=== PATIENT | male | born 1985 | race Caucasian/White ===

== ENCOUNTER 2019-06-27 05:36 | Outpatient (CLI) | payer OTHER ==
[~2019-06-27] VITALS: Ht 175 cm; Wt 95.4 kg
== END 2019-06-27 11:59 ==
LOC: PREOP 05:36
PROVIDERS: ATTEND Surgery
DX: Z01.818 Encounter for other preprocedural examination (principal)

== ENCOUNTER 2019-07-05 07:37 | Day surgery (SDC) | payer OTHER ==
--- NOTE | 2019-05-29 11:29 | HISTORY AND PHYSICAL ---
DATE OF SERVICE: PROCEDURE DATE: 07/05/2019. ATTENDING PHYSICIAN: DRE. HISTORY OF PRESENT ILLNESS: The patient is a 34-year-old male, who was referred over to us for pain as well as a bulge in the umbilical region. The patient reports that this has been there for approximately the last 8 years; however, more recently this has become larger in size and started to become painful. He did have a CT several years ago when he was in [place] and at the where it did confirm the umbilical hernia; however, he reports that it was not bothering him as much as it is now. He denies any diarrhea or constipation as well as no fever or chills. PAST MEDICAL HISTORY: None. PAST SURGICAL HISTORY: Right wrist ORIF in 2007, wisdom teeth removed. ALLERGIES: PERCOCET. MEDICATIONS: None. SOCIAL HISTORY: Negative for smoke, rare for alcohol. FAMILY HISTORY: Paternal grandmother, breast cancer, diabetes, myocardial infarction, hypertension. VITAL SIGNS: Blood pressure 110/50. Current weight is 216.2, 5 feet 9 inches. REVIEW OF SYSTEMS: Well-nourished male in no acute distress. He is not experiencing any shortness of breath or difficulty breathing. No chest pain, palpitations or diaphoresis. No nausea or vomiting. He does report episodes of discomfort as well as pain at times in the umbilical region. No diarrhea or constipation. No red blood per rectum. No dark tarry stools. No fever or chills. No recent inadvertent weight loss. All other review of systems negative. PHYSICAL EXAMINATION: CHEST: Clear. Good breath sounds bilaterally. HEART: Regular, no murmurs. EXTREMITIES: No lower extremity edema. Negative Homans sign. HEENT: Scleral icterus. NECK: No cervical lymphadenopathy. ABDOMEN: Soft, nondistended. With the patient performing Valsalva maneuver, there is a bulge from the umbilical region, which was identified, which is reducible; however, the painful upon palpation. This is a reducible and is consistent with an umbilical hernia. SKIN: Warm, dry and pink. NEUROLOGIC: Awake, alert and oriented x3. ASSESSMENT AND PLAN: A 34-year-old male with a symptomatic reducible umbilical hernia. At this time, we will recommend proceeding with an umbilical hernia repair with mesh. The risks and benefits of the procedure as well as the procedure and home care instructions were explained to the patient. The patient verbalized understanding of instructions and agrees to proceed as planned. At this time, we will proceed with scheduling him for an umbilical hernia repair with mesh. Job ID: [id number] DocumentID: [id number] Dictated Date: 05/29/2019 09:32:18 Washroom Attendant Date: 05/29/2019 11:28:58 Dictated By: YOLANDA HOUSTON APRN
[2019-07-05] VITALS (11 sets, daily range): BP systolic 99–131; BP diastolic 61–88
[~2019-07-05] VITALS: Ht 175 cm; Wt 95.4 kg
[2019-07-05] MEDS ORDERED: ONDANSETRON 4 MG/2 ML (SDV) Z0FRAN ONE (08:13)
[2019-07-05] MEDS ORDERED: MIDAZOLAM 2 MG/2 ML (VERSED) VIAL ONE (08:13)
[2019-07-05] MEDS ORDERED: fentaNYL INJECTION 100 MCG/2 ML AMP ONE (08:13)
[2019-07-05] MEDS ORDERED: proPOfol 200 MG/20 ML (DIPRIVAN) VIAL IV ONE (08:13)
[2019-07-05] MEDS ORDERED: LIDOCAINE PF 2% 5 ML (XYLOCAINE) VIAL ONE (08:13)
[2019-07-05] MEDS ORDERED: SEVOFLURANE (ULTANE) 15 ML INHAL SOLN ONE ×4 (08:15→10:02)
--- NOTE | 2019-07-05 08:23 | Progress Note-Pre Operative ---
Pre-Operative Progress Note H&P Reviewed The H&P was reviewed, patient examined and no changes noted. Date Seen by Provider: Jul 05, 2019 Time Seen by Provider: 08:20 Date H&P Reviewed: Jul 05, 2019 Time H&P Reviewed: 08:15 Pre-Operative Diagnosis: Symptomatic Umbilical hernia YOLANDA HOUSTON APRN Jul 05, 2019 08:23
[2019-07-05] MEDS ORDERED: HYDR-3816 PO (08:25)
--- NOTE | 2019-07-05 08:26 | Discharge Inst-Surgical ---
D/C Lap Instructions-KIDO Reconcile Patient Problems Problems Reviewed?: Yes New, Converted, or Re-Newed RX: RX on Chart Follow Up Appt in 2 weeks Activity as tolerated No driving for 24 hours No driving while on pain medications Incentive Spirometry use every 2 hours while awake Regular Diet Symptoms to Report: Fever over 101 degree F, Nausea/Vomiting Infection Signs and Symptoms to report: Increased redness, Foul odor of wound, Increased drainage Bathing instructions: May shower Operative Area Clean/Dry; Keep incision clean/dry If any problems/questions: Contact your physician or go to Emergency Room YOLANDA HOUSTON APRN Jul 05, 2019 08:26
[2019-07-05] MEDS ORDERED: HYDROcodone/APAP 5 MG/325 MG (LORTAB) TAB PO ONE (08:30)
[2019-07-05] MEDS ORDERED: ONDANSETRON 4 MG/2 ML (SDV) Z0FRAN IVP PRN ×3 (08:30→10:45)
[2019-07-05] MEDS ORDERED: ceFAZolin 2 GM/50 ML NS 50 ML IV ONE (08:30)
[2019-07-05] MEDS ORDERED: ACETAMINOPHEN 325 MG TABLET PO PRN (08:30)
[2019-07-05] MEDS ORDERED: morphine INJ 10 MG/ML 1ML (SYR OR VIAL) IVP PRN (08:30)
[2019-07-05] MEDS: LACTATED RINGERS 1,000 ML IV PRN ×2 (08:36→10:46)
[2019-07-05] MEDS ORDERED: BUP/EPI 0.5% 1:200,000 (SENSORCAINE) 30 ML VIAL ONE (08:41)
--- NOTE | 2019-07-05 10:15 | Anesthesia-General Post-Op ---
General Patient Condition Mental Status/LOC: Same as Preop Cardiovascular: Satisfactory Nausea/Vomiting: Absent Respiratory: Satisfactory Pain: Controlled Complications: Absent Post Op Complications Complications None Follow Up Care/Instructions Patient Instructions None needed. Anesthesia/Patient Condition Patient Condition Patient is doing well, no complaints, stable vital signs, no apparent adverse anesthesia problems. No complications reported per nursing. MARGRET STEELE CRNA Jul 05, 2019 10:15
[2019-07-05] MEDS: morphine INJ 4 MG/ML 1 ML (VIAL/SYRINGE) IV ONE ×2 (10:26→10:41)
[2019-07-05] MEDS ORDERED: morphine INJ 10 MG/ML 1ML (SYR OR VIAL) IVP ONE (10:45)
[2019-07-05] MEDS ORDERED: HYDROcodone/APAP 5 MG/325 MG (LORTAB) TAB ONE (12:00)
--- NOTE | 2019-07-05 18:07 | OPERATIVE REPORT ---
DATE OF SERVICE: 07/05/2019 PREOPERATIVE DIAGNOSIS: Umbilical hernia. POSTOPERATIVE DIAGNOSES: 1. Umbilical hernia with the defect approximately 1.5 cm in size. 2. Incarcerated umbilical hernia. PROCEDURE PERFORMED: Open umbilical hernia repair with mesh. SURGEON: Pankaj Lin MD. MAINTENANCE INSTRUCTOR: Carlos Abarca APRN. ANESTHESIA: General laryngeal mask airway. ESTIMATED BLOOD LOSS: Minimal. FINDINGS: Umbilical hernia with preperitoneal fat as well as omentum within the hernia sac. No strangulation. DISPOSITION: The patient tolerated the procedure well. INDICATIONS: The patient is a 34-year-old male who is a and during his service, he was pulling a heavy chain and was twisting his body in a certain location and did feel a shearing sensation in the umbilical region and since that time, he has had pain and then eventually developed a bulge consistent with an umbilical hernia. Over time, the bulge grew larger in size and become more painful. Upon examination, he was found to have an incarcerated umbilical hernia, which was tender to palpation. DESCRIPTION OF PROCEDURE: The patient was brought to the operating room, laid supine on the table. After adequate IV pain and sedative medications and general laryngeal mask airway intubation, the abdomen was prepped and draped in standard surgical fashion. A 0.5% Marcaine with epinephrine was used to anesthetize the supraumbilical region and a crescent-shaped skin incision was made using a 15-blade. The subcutaneous tissue was then dissected down using electrocautery. The hernia sac was then identified and then dissected out completely using blunt dissection as well as electrocautery to the fascial base. The hernia sac was significantly larger in size. The fascial opening was small at 1.5 cm. The hernia sac was then opened using Metzenbaum scissors with preperitoneal fat as well as omentum within the hernia sac, which was incarcerated; however, there were no signs of ischemia. This was excised using electrocautery with visualization of good hemostasis. A finger sweep along the peritoneal lining was then performed with no adhesions towards the anterior abdominal wall. A 6.4 cm coated polypropylene mesh was then placed in the defect and sutured to the fascia concentrically with transfascial #0 Prolene sutures in an interrupted manner with visualization of good hemostasis. Subcutaneous tissue was then reapproximated using 3-0 Vicryl interrupted suture and the skin was closed using 4-0 Monocryl running subcuticular suture. Wound was then cleaned and covered with Dermabond followed by tonsil sponges, 4 x 4 followed by large Op-Site abdominal binder. The patient tolerated the procedure well. We will start IV normal pain medications with a clear liquid diet. Once he is tolerating clears, has good pain control with oral pain medications, ambulating well, we will discharge him home. He will be instructed to do no heavy lifting or exertion for six weeks. Job ID: [id number] DocumentID: [id number] Dictated Date: 07/05/2019 10:08:10 Director Of Rehabilitative Services Date: 07/05/2019 18:06:31 Dictated By: PANKAJ LIN MD
== END 2019-07-05 12:30 | disposition home or self-care (01) ==
LOC: SDC 07:37
PROVIDERS: ATTEND Surgery
DX: K42.0 Umbilical hernia with obstruction, without gangrene (principal); Z88.6 Allergy status to analgesic agent; Z88.3 Allergy status to other anti-infective agents; Z88.5 Allergy status to narcotic agent; Z82.49 Family history of ischemic heart disease and other diseases of the circulatory system; Z80.3 Family history of malignant neoplasm of breast
CPT/HCPCS: 87081; 94664